=== PATIENT | female | born 1990 | race Caucasian/White ===

== ENCOUNTER 2021-07-12 16:31 | Emergency (ER) | payer OTHER, SELFPAY ==
[2021-07-12 16:32] VITALS: BP 148/88; PULSE 129; RESP 19; TEMP 36.6; O2SAT 98; BMI 33.6
[2021-07-12 16:48] VITALS: O2SAT 97
--- NOTE | 2021-07-12 16:54 | EKG12_ITS ---
Test Reason : Blood Pressure : / mmHG Vent. Rate : 106 BPM Atrial Rate : 106 BPM P-R Int : 144 ms QRS Dur : 082 ms QT Int : 320 ms P-R-T Axes : 057 038 025 degrees QTc Int : 425 ms Sinus tachycardia Low voltage QRS (Limb Leads) Poor R wave progression Confirmed by BERNARDO LOZA, KALANI ([id number]), editor dictionary ZAKIA GIBBS ([id number]) on 07/14/2021 1:26:57 PM Referred By: Confirmed By:KALANI CHANG MD
[2021-07-12] MEDS: Ipratropium/Albuterol Sulfate 3 ML AMPUL.NEB INHALATION (17:11)
[2021-07-12 17:15] VITALS: PULSE 109; RESP 25
--- NOTE | 2021-07-12 17:16 | ED.VIS.DYS ---
HPI History of Present Illness Chief Complaint: Shortness of Breath Informant: patient Narrative Narrative: Patient presents with dyspnea that really started mostly during the day. She may have had a little bit of coughing and dyspnea over the last couple days but it was quite mild. She states she has a small area just discomfort right in the center of her sternum down low. She points with 1 finger to the spot. But it is not pleuritic. She is coughing but has no sputum production or blood. No pleuritic pain. No swelling of the legs. No personal family history of DVT or PE. No recent surgeries. She is on Mirena ring. She is not a smoker. Patient's daughter has swab positive influenza A. This patient started with symptoms on where she had some fevers myalgias. Sunday she had some nausea and vomiting but that is resolved. Sunday she started a slight cough. The myalgias nausea and vomiting and fevers are all gone now. Patient had 2 Covid shots about a year ago. She had Covid several months ago. She has history of using inhalers in the past but is never been diagnosed with asthma. She tried a leftover albuterol but it did not seem to help. [facility] Medical History Bipolar 1 disorder Home Medications prednisone 40 mg PO DAILY #10 tab 07/12/21 [Rx Last Taken Unknown] Allergy/AdvReac Type Severity Reaction Status Date / Time Sulfa (Sulfonamide Allergy Rash Verified 07/12/21 16:34 Antibiotics) amoxicillin AdvReac Rash Verified 07/12/21 16:34 Social History Smoking Status: Never smoker ROS ROS ED Constitutional Constitutional ED: Reports chills, fever(s) and other Details: See HPI. Symptoms now gone. Eyes Eyes: Denies change in vision ENT ENT ED: Denies rhinorrhea or sore throat Cardiovascular Cardiovascular: Reports chest pain; Denies palpitations Respiratory/Chest Respiratory/Chest: Reports cough and dyspnea; Denies sputum Gastrointestinal Gastrointestinal: Reports nausea, vomiting and other Details: See HPI. Symptoms now gone. ; Denies abdominal pain Genitourinary Genitourinary ED: Denies dysuria Musculoskeletal Musculoskeletal: Reports myalgias and other Details: Patient had myalgias earlier but now gone. See HPI Integumentary Denies rash Neurologic Neurologic: Denies headache(s), paresthesias or weakness Endocrine Endocrinology: Denies polydipsia or polyuria Hematologic/Lymphatic Hematologic/Lymphatic: Denies easy bleeding or easy bruising Allergic/Immunologic Allergic/Immunologic ED: Denies urticaria EXAM Physical Exam Const Vital Signs: 07/12/21 16:32 07/12/21 16:48 07/12/21 17:15 Temperature 98 F Temperature Source Temporal Pulse Rate 129 H 109 H Respiratory Rate 19 H 25 H Respiratory Effort Normal Respiratory Depth Normal Respiratory Pattern Normal Tachypnea Blood Pressure 148/88 H Blood Pressure Mean 108 Pulse Ox 98 Oxygen Delivery Method Room Air Room Air Positive well nourished and well developed Constitutional Narrative: Patient carries on a normal conversation. However, her heart rate and respiratory rate are little bit high. General Appearance ED: well developed and NAD HEENT Reports moist mucous membranes atraumatic Eyes General Eye ED: Negative for pale conjunctiva or scleral icterus Neck no JVD Resp normal respiratory effort Resp Narrative: The first breaths I thought I heard some slight wheezing on the left. However, after some cough and deep breathing the seem to improve. Auscultation: Negative for rales or rhonchi Cardio regular rhythm Rate: tachycardic GI non-tender and non-distended Palpation: soft Back/Spine normal to inspection; Negative for no CVA tenderness Extremity normal to inspection General Extremety ED: Negative for edema or tenderness General Extremity: Negative for edema Neuro oriented x3 Sensorium / Orientation: alert Psych mental status grossly normal Skin Lesions: no lesions Rashes: no rashes MDM MDM MDM Narrative Medical decision making narrative: Patient CBC shows no marked abnormalities. Mild elevation of hemoglobin. D-dimer was negative. Electrolytes showed some mildly low potassium. But I doubt this is the source of her symptoms. Troponin was negative. X-ray showed some mild bronchial wall thickening. Patient had just mild change with her breathing treatment. Patient was tachycardic. She was mildly tachypneic. Even though she had a negative D-dimer I was uncomfortable ignoring those facts. We did do a CTA which happily showed no acute process. Covid and flu screens were negative but she has known exposure to positive tested influenza. This patient also used to use inhalers. She does have an albuterol at home. I Ashley put her on a short course of steroids and have her follow-up with her physician. Lab Data Attestation: I reviewed the patient's lab results. Labs: Laboratory Results - last 24 hr 07/12/21 07/12/21 07/12/21 17:15 17:15 17:15 WBC 6.2 RBC 5.54 H Hgb 15.4 H Hct 45.6 MCV 82.3 MCH 27.8 MCHC 33.8 RDW Std Deviation 37.0 RDW Coeff of Naveed 12.1 Plt Count 243 MPV 8.9 Immature Gran % (Auto) 0.200 Neut % (Auto) 60.0 Lymph % (Auto) 29.2 [place] % (Auto) 10.2 H Eos % (Auto) 0.2 Baso % (Auto) 0.2 Absolute Neuts (auto) 3.7 Absolute Lymphs (auto) 1.80 Nucleated RBC % 0 D-Dimer Quant (PE/DVT) 0.45 Sodium 133 L Potassium 3.0 L Chloride 99 Carbon Dioxide 28.0 Anion Gap 6 BUN 12 Creatinine 0.98 Estim Creat Clear Calc 68.80 Est GFR (MDRD) Af Amer 85 Est GFR (MDRD) Non-Af 70 BUN/Creatinine Ratio 12.3 Glucose 112 H Calcium 9.4 Troponin I High Sens 3 Radiography Diagnostic Testing: Clinical Impression(s) from Imaging Studies Chest X-Ray 07/12/21 17:33 IMPRESSION: 1. Minimal bronchial wall thickening centrally, which either represents an minimal bilateral bronchitis can be seen in a patient who smoke cigarettes or marijuana. 2. No other evidence of active cardiopulmonary disease. Electronically Signed: Fran Zarco MD at 18:17 EDT , Chest CTA 07/12/21 18:45 IMPRESSION: Negative CTA chest. Electronically Signed: John Puckett MD at 19:24 EDT , EKG Initial EKG: Comments: EKG done for dyspnea and tachycardia read by me shows sinus rhythm with tachycardic rate at 106. No ventricular ectopy. No acute ST elevation or depression. VA interval, QRS duration and QTc normal. Discharge Plan Triage Chief Complaint: Shortness of Breath ED Provider: Connor Garcia Dx/Rx/DC Orders Clinical Impression: Acute dyspnea, Influenza-like illness Instructions: ED Viral Syndrome (Adult) Prescriptions: New prednisone 20 MG tablet 40 mg PO DAILY Qty: 10 RF: 0 [facility] [Primary [facility] Provider] - 3-5 Days if not improving Disposition Disposition: Home, Self Care
[2021-07-12 17:27] LABS: Absolute Neutrophil Count 3.7 X10^3/uL (2.0-7.7); Basophil# 0.01 X10^3/uL; Basophil% 0.2 % (0-1); Eosinophil# 0.01 X10^3/uL; Eosinophils% 0.2 % (0-5); Hematocrit 45.6 % (37-47); Hemoglobin 15.4 g/dL (12.0-15.0); Lymphocyte % 29.2 % (19-41); Mean Corp Hgb Conc 33.8 g/dL (32-36); Mean Corpuscular Hgb 27.8 pg (27.0-32.0); Mean Corpuscular Volume 82.3 fL (81-99); Mean Platelet Vol. 8.9 fl (6.2-12.0); Monocyte# 0.63 X10^3/uL; Monocyte% 10.2 % (0-10); NRBC Flagged by Analyzer 0 % (0-5); Neutrophil # 3.71 X10^3/uL (2.7-7.7); Platelet Count 243 K/mm3 (150-450); RBC Distribution Width CV 12.1 % (11.6-14.6); Red Blood Count 5.54 M/mm3 (4.2-5.4); White Blood Count 6.2 K/mm3 (4.4-11.0)
--- NOTE | 2021-07-12 17:33 | RAD_ITS ---
STUDY: CHEST SERIES-CHEST PA AND LATERAL VIEWS OF 1742 HOURS ON 07/12/2021 REASON FOR EXAM: 30-year-old female with shortness of breath. TECHNIQUE: A standard 2 view chest x-ray series was performed. COMPARISON: None. FINDINGS: There is minimal thickening of the bronchial rivas centrally, which either represents a minimal bronchitis or can be seen in a patient who smokes cigarettes or marijuana . The lungs are clear and expanded. There is no demonstrated pleural abnormality. Normal size heart. Normal mediastinum and scott. Normal visualized pulmonary arteries. Normal visualized aortic arch and descending thoracic aorta. Normal visualized thoracic spine. Normal visualized ribs, clavicles, and shoulders. There is no demonstrated abnormality of the visualized soft tissue structures of the upper abdomen. RAD/Chest PA and Lateral IMPRESSION: 1. Minimal bronchial wall thickening centrally, which either represents an minimal bilateral bronchitis can be seen in a patient who smoke cigarettes or marijuana. 2. No other evidence of active cardiopulmonary disease. Electronically Signed: Fran Zarco MD at 18:17 EDT ,
[2021-07-12 17:43] LABS: D-Dimer Quantitative (DVT/PE) 0.45 FEU/ug/m (0.27-0.49)
[2021-07-12 17:53] LABS: Anion Gap 6 (5-15); BUN 12 mg/dL (7-18); BUN/Creat Ratio 12.3 RATIO (10-20); Calcium,Total 9.4 mg/dL (8.5-10.1); Chloride 99 mmol/L (98-107); Creatinine, Serum 0.98 mg/dL (0.55-1.02); EST Glomerular Filtration Rate 70 mL/min (>60); Est Glom Filt Rate - Afr Amer 85 mL/min (>60); Glucose 112 mg/dL (74-106); Sodium Level 133 mmol/L (136-145); Troponin-I HS 3 pg/mL (3.0-54.0)
--- NOTE | 2021-07-12 18:45 | CT_ITS ---
EXAM: CT ANGIOGRAPHY CHEST WITHOUT AND WITH INTRAVENOUS CONTRAST CLINICAL INDICATION: PE, SOB TECHNIQUE: Helically acquired angiography images were obtained of the chest without and with intravenous contrast. This CT exam was performed using one or more of the following dose reduction techniques: automated exposure control, adjustment of the mA and/or kV according to patient size, and/or use of iterative reconstruction technique. This report was created using [employer] report generation technology. MIP reconstructed images were created and reviewed. CONTRAST: IV 100mL [id number]-370 RADIATION DOSE: CTDIvol = 8.80 mGy, DLP = 383.77 mGy-cm COMPARISON: None. FINDINGS: PULMONARY ARTERIES: Unremarkable. Normal in caliber. No evidence of pulmonary embolism. AORTA: Unremarkable. Normal in caliber. No evidence of dissection. GREAT VESSELS OF AORTIC ARCH: Unremarkable. Normal in caliber. No evidence of dissection. LUNGS AND PLEURAL SPACES: Unremarkable. No mass. No consolidation or edema. No pleural effusion or thickening. No pneumothorax. HEART: Unremarkable. Heart size is normal. No pericardial effusion. No signs of right heart strain, ratio of right ventricle to left ventricle measures less than 1. MEDIASTINUM: Unremarkable. No mediastinal or hilar adenopathy. Esophagus is unremarkable. No hiatal hernia. THYROID: Unremarkable. No thyroid lesions. BONES/JOINTS: Unremarkable. No suspicious lytic or blastic abnormality. CT/CTA Chest W/WO Contrast IMPRESSION: Negative CTA chest. Electronically Signed: John Puckett MD at 19:24 EDT Reading Location ID and State: [facility] / [place] , Service support ,
== END 2021-07-12 20:19 | disposition home or self-care (01) ==
PROVIDERS: Emergency Provider Emergency Medicine; Visit Provider Emergency Medicine
DX: R06.00 Dyspnea, unspecified (principal); Z20.822 Contact with and (suspected) exposure to COVID-19; Z86.16 Personal history of COVID-19
CPT/HCPCS: 71046; 71275; 80048; 84484; 85025; 85379; 87428; 93005; 94640; 99283; Q9967; A4216

== ENCOUNTER 2023-05-07 11:40 | Emergency (ER) | payer OTHER, SELFPAY ==
[2023-05-07 11:41] VITALS: BP 143/102; PULSE 87; RESP 16; TEMP 36.5; O2SAT 98; BMI 38.0
--- NOTE | 2023-05-07 11:50 | RAD_ITS ---
STUDY: X-RAY CHEST REASON FOR EXAM: Female, 32 years old. Chest pain TECHNIQUE: Single AP portable view of the chest. COMPARISON: None. FINDINGS: The lungs are clear and expanded. There is no demonstrated pleural abnormality. Normal size heart. Normal mediastinum and scott. Normal visualized pulmonary arteries. Normal visualized aortic arch and descending thoracic aorta. Normal visualized thoracic spine. Normal visualized ribs, clavicles, and shoulders. There is no demonstrated abnormality of the visualized soft tissue structures of the upper abdomen. RAD/Chest 1 View (Portable) IMPRESSION: Normal x-ray examination of the chest. Electronically Signed: Chito Fuentes MD at 12:17 EST ,
[2023-05-07 12:22] LABS: Absolute Lymphocyte Count 2.43 X10^3/uL (0.83-4.51); Absolute Neutrophil Count 4.9 X10^3/uL (2.0-7.7); Basophil# 0.06 X10^3/uL; Basophil% 0.8 % (0-1); Eosinophil# 0.09 X10^3/uL; Eosinophils% 1.2 % (0-5); Hematocrit 43.6 % (37-47); Hemoglobin 14.3 g/dL (12.0-15.0); Lymphocyte # 2.43 X10^3/ul (0.83-4.51); Lymphocyte % 31.1 % (19-41); Mean Corp Hgb Conc 32.8 g/dL (32-36); Mean Corpuscular Hgb 27.4 pg (27.0-32.0); Mean Corpuscular Volume 83.5 fL (81-99); Mean Platelet Vol. 8.5 fl (6.2-12.0); Monocyte# 0.32 X10^3/uL; Monocyte% 4.1 % (0-10); NRBC Flagged by Analyzer 0 % (0-5); Neutrophil # 4.89 X10^3/uL (2.7-7.7); Neutrophil % 62.4 % (47-70); Platelet Count 273 K/mm3 (150-450); RBC Distribution Width CV 12.2 % (11.6-14.6); RBC Distribution Width SD 37.2 fl (35.1-43.9); Red Blood Count 5.22 M/mm3 (4.2-5.4); White Blood Count 7.8 K/mm3 (4.4-11.0)
[2023-05-07 12:46] LABS: Anion Gap 4 (5-15); BUN 8 mg/dL (7-18); BUN/Creat Ratio 9.1 RATIO (10-20); Calcium,Total 9.3 mg/dL (8.5-10.1); Chloride 105 mmol/L (98-107); Creatinine, Serum 0.88 mg/dL (0.55-1.02); EST Glomerular Filtration Rate 79 mL/min (>60); Est Glom Filt Rate - Afr Amer 95 mL/min (>60); Glucose 89 mg/dL (74-106); Potassium 3.6 mmol/L (3.5-5.1); Sodium Level 136 mmol/L (136-145); Troponin-I HS (w/2H Reflex) 8 pg/mL (3.0-54.0)
[2023-05-07 13:57] LABS: D-Dimer Quantitative (DVT/PE) 0.28 FEU/ug/m (0.27-0.49)
[2023-05-07 14:19] LABS: Reflex Troponin-HS? (from REC) Y
--- NOTE | 2023-05-07 14:35 | EDS_ITS ---
HPI History of Present Illness Chief Complaint: Chest Pain Narrative Narrative: 32-year-old female who denies significant past medical history except for bipolar disorder presents with chest pressure that she has had since 4 PM yesterday. She states it started when she was picking up her children's toys, and she started feeling a discomfort in her chest midsternally. She denies any tearing back pain sensation but does have history of chronic back pain. No exacerbating or alleviating factors, she states nothing makes it better or worse. She was able to go to sleep when she woke up this morning, was present again. She rated at 2 yesterday. She denies any nausea or vomiting, no shortness of breath or diaphoresis. Of note, her father and her grandparent did have early coronary artery disease according to her mother who is present at the bedside. Patient denies any leg swelling, no other symptoms. [facility] Medical History Bipolar 1 disorder Home Medications prednisone 20 mg tablet 40 mg (2 x 20 mg) PO DAILY #10 tabs 07/12/21 [Rx Last Taken Unknown] Allergy/AdvReac Type Severity Reaction Status Date / Time Sulfa (Sulfonamide Allergy Rash Verified 05/07/23 11:42 Antibiotics) amoxicillin AdvReac Rash Verified 05/07/23 11:42 Social History Smoking Status: Never smoker ROS ROS ED ROS Narrative Constitutional: No fever, no chills. HEENT: No sore throat. No neck pain. No loss of vision. No rhinorrhea. Cardiovascular: Positive chest pressure/chest pain. No palpitations. No pedal edema. Respiratory: No cough, no shortness of breath. Abdominal: No abdominal pain. No nausea. No vomiting. Genitourinary: No dysuria. No hematuria. Musculoskeletal: No myalgias. No arthralgias. Neurologic: No headaches. No dizziness. No lightheadedness. Skin: No rash. No change in color. Psychiatric: No depression. No anxiety. EXAM Physical Exam Narrative Exam Narrative: Afebrile. Vital signs noted. HEENT: Normocephalic. Atraumatic. PERRL, EOMI. Neck soft and supple. No point tenderness or step off. Cardiovascular: Regular rate and rhythm. No murmurs, rubs, or gallops appreciated. Respiratory: No tachypnea. Lungs clear to auscultation bilaterally. Gastrointestinal: Abdomen soft, nontender, with normoactive bowel sounds. No rebound or guarding. Neurological: Awake. Alert. Nonfocal, nonlateralizing. Skin: No rash. Normal color. No pallor. Musculoskeletal: No pedal edema. Full range of motion extremities. Const Vital Signs: 05/07/23 11:41 05/07/23 12:39 05/07/23 15:15 Temperature 97.7 F L Temperature Source Temporal Pulse Rate 87 86 Respiratory Rate 16 18 Blood Pressure 143/102 H 156/99 H Blood Pressure Mean 115 118 Pulse Ox 98 99 Oxygen Delivery Method Room Air Room Air Room Air Heart Score History: Slightly/Non-Suspicious ECG: Normal Age: </= 45 years Risk Factors: 1 or 2 Risk Factors Troponin: </= Normal Limit Score: 1 MDM MDM MDM Narrative Medical decision making narrative: In the differential diagnosis is acute coronary syndrome/cardiac ischemia versus pulmonary embolism versus pneumothorax or pneumonia. Latter 2 diagnoses are not supported by the history and physical. I have low suspicion for aortic dissection because she does not have tearing back pain and her blood pressure is appropriate and only borderline here in the emergency department. RN entered protocol orders were entered and obtained and reviewed. EKG interpreted by myself independently demonstrates normal sinus rhythm at 76 bpm without ectopy or acute ST changes. No STEMI. I reviewed her laboratory work and she has normal white count of 7.8, hemoglobin normal at 14.3, hematocrit 42.6, normal platelet count of 273. D-dimer is normal at 0.28, review of her electrolyte panel is grossly unremarkable except for anion gap low at 4. Glucose is 89. Her initial high-sensitivity troponin is 8. Chest x-ray 1 view reviewed and interpreted by myself independently shows no evidence of pneumothorax or pneumonia. I reviewed the radiology report which confirms my independent interpretation. At this point in time, unless her serial troponin is positive I feel she can be discharged safely home with follow-up to her primary care provider. Her repeat troponin is 7, so I feel that she does not require observation or admission. Return instructions to the emergency department were reviewed. Disposition is discharged home in stable condition. History & Record Review Discussion w/independent historian: Patient and Family Additional record(s) reviewed:: Prior labs Lab Data Attestation: I reviewed the patient's lab results. Labs: Laboratory Results - last 24 hr 05/07/23 05/07/23 12:10 15:11 WBC 7.8 RBC 5.22 Hgb 14.3 Hct 43.6 MCV 83.5 MCH 27.4 MCHC 32.8 RDW Std Deviation 37.2 RDW Coeff of Naveed 12.2 Plt Count 273 MPV 8.5 Immature Gran % (Auto) 0.400 Neut % (Auto) 62.4 Lymph % (Auto) 31.1 [facility] % (Auto) 4.1 Eos % (Auto) 1.2 Baso % (Auto) 0.8 Absolute Neuts (auto) 4.9 Absolute Lymphs (auto) 2.43 Nucleated RBC % 0 D-Dimer Quant (PE/DVT) 0.28 Sodium 136 Potassium 3.6 Chloride 105 Carbon Dioxide 27.0 Anion Gap 4 L BUN 8 Creatinine 0.88 Estim Creat Clear Calc 101.00 Est GFR (MDRD) Af Amer 95 Est GFR (MDRD) Non-Af 79 BUN/Creatinine Ratio 9.1 L Glucose 89 Calcium 9.3 Troponin I High Sens 8 7 Radiography Diagnostic Testing: Clinical Impression(s) from Imaging Studies Chest X-Ray 05/07/23 11:50 IMPRESSION: Normal x-ray examination of the chest. Electronically Signed: Chito Fuentes MD at 12:17 EST Reading Location ID and State: [address] [place] [address] , Service support , Discharge Plan Triage Chief Complaint: Chest Pain ED Provider: Surjit Antonio Dx/Rx/DC Orders Clinical Impression: Elevated blood-pressure reading without diagnosis of hypertension, Chest pressure Instructions: ED Chest Pain, Uncertain Cause Prescriptions: No Action prednisone 20 MG tablet 40 mg PO DAILY Qty: 10 0RF [facility] Care Provider: [facility]errals[facility] [Primary [facility] Provider] - 3-5 Days if not improving Disposition Disposition: Home, Self Care
[2023-05-07 15:15] VITALS: BP 156/99; PULSE 86; RESP 18; O2SAT 99
[2023-05-07 15:37] LABS: Troponin-I HS 7 pg/mL (3.0-54.0)
[2023-05-07 15:52] VITALS: BP 158/99; PULSE 80; RESP 18; O2SAT 97
== END 2023-05-07 15:55 | disposition home or self-care (01) ==
PROVIDERS: Emergency Provider Emergency Medicine; Visit Provider Emergency Medicine
DX: R03.0 Elevated blood-pressure reading, without diagnosis of hypertension (principal); F31.9 Bipolar disorder, unspecified; R07.89 Other chest pain; G89.29 Other chronic pain; M54.9 Dorsalgia, unspecified; I25.10 Atherosclerotic heart disease of native coronary artery without angina pectoris
CPT/HCPCS: 71045; 80048; 84484; 85025; 85379; 93005; 99283; A4216

== ENCOUNTER → 2023-06-07 | Outpatient (CLI) | payer OTHER, SELFPAY ==
--- NOTE | 2023-06-07 11:35 | STRESSREP_ITS ---
Stress Test Report Date: 09/07/2023 Procedure: Exercise tolerance test Indications: Chest pain Consent: Per the patient Procedure: The patient exercised on a Kang protocol for 9 minutes achieving a peak heart rate of 193 bpm (103% predicted maximal heart rate) with a peak blood pressure 162/68 mmHg and a peak MET capacity of approximately 10.4 MET's. The baseline ECG demonstrated sinus rhythm. The peak exercise ECG demonstrated sinus tachycardia with no ischemic changes. There were no cardiac dysrhythmias pretest, during exercise, or recovery. The functional capacity was considered very good. The patient complained of midsternal chest pain starting at around peak exercise. The examination was discontinued secondary to target heart rate being achieved. Impression: 1. Technically adequate (percent predicted maximal heart rate greater than 85%) exercise tolerance test 2. Peak exercise ECG with no ischemic changes 3. Patient complained of midsternal chest pain during exercise 4. There were no cardiac dysrhythmias during exercise or recovery This note was generated with [employer] software. It may contain incorrect words, spelling, and punctuation that were not noted in checking the note before signing.
== END | disposition home or self-care (01) ==
PROVIDERS: Referring Provider Family Medicine; Visit Provider Family Medicine
DX: R07.89 Other chest pain (principal)
CPT/HCPCS: 93017